=== PATIENT | male | born 1960 | race Caucasian/White ===

== ENCOUNTER → 2017-01-12 | Outpatient (CLI) | payer BC ==
[~2017-01-12] MED LIST: ASP81TEC PO; CHOL400T3 PO; CYAN10006 PO; GLUC100016 PO; GLUC500C2 PO; HYDR-3720 PO; IRBE1TAB33 PO; OLME1TAB25 PO; SULF1TAB38 PO; VITAMIN B 12
[2017-01-12 10:09] LABS: BILIRUBIN,URINE NEGATIVE (NEGATIVE); KETONES,URINE 1+ (NEGATIVE); LEUKOCYTE ESTERASE ,URINE 3+ (NEGATIVE); NITRITE,URINE POSITIVE (NEGATIVE); PH,URINE 5 (5-9); PROTEIN,URINE 2+ (NEGATIVE); UROBILINOGEN,URINE 1 MG/DL (NORMAL)
[2017-01-12 10:24] LABS: SQUAMOUS EPITHELIAL CELL,UR RARE /HPF; WBC,URINE >100 /HPF
== END ==
LOC: LAB 09:50
PROVIDERS: ATTEND Internal Medicine
DX: R50.9 Fever, unspecified (principal); Z87.440 Personal history of urinary (tract) infections; Z87.438 Personal history of other diseases of male genital organs
CPT/HCPCS: 81000; 87077; 87088; 87186

== ENCOUNTER → 2017-02-06 | Outpatient (CLI) | payer BC ==
[2017-02-06 13:43] LABS: BILIRUBIN,URINE NEGATIVE (NEGATIVE); KETONES,URINE NEGATIVE (NEGATIVE); LEUKOCYTE ESTERASE ,URINE 3+ (NEGATIVE); NITRITE,URINE NEGATIVE (NEGATIVE); PH,URINE 6 (5-9); PROTEIN,URINE NEGATIVE (NEGATIVE); UROBILINOGEN,URINE NORMAL (NORMAL)
[2017-02-06 14:25] LABS: GRANULAR CASTS,URINE RARE /LPF; HYALINE CASTS, URINE RARE /LPF; SQUAMOUS EPITHELIAL CELL,UR 0-2 /HPF
--- NOTE | 2017-02-06 14:34 | Diagnostic Imaging Report ---
PROCEDURE: CT urinary tract, rule out kidney stone. TECHNIQUE: Multiple contiguous axial images were obtained through the abdomen and pelvis without the use of intravenous contrast. INDICATION: Right flank pain. Rectal bleeding. Comparison: None Findings: Included portions of the lung bases are clear. CT abdomen: The kidneys, liver, spleen, adrenal glands, and pancreas have an unremarkable noncontrast CT appearance. Small bowel loops are nondistended. Normal appendix is identified. There is colonic diverticulosis, but no CT evidence of acute diverticulitis. There is no loculated fluid collection, free fluid, nor free air within the abdomen. No abnormal mesenteric or retroperitoneal adenopathy is seen. Bony structures show no acute abnormalities. There is mild to moderate calcified aortic atherosclerosis. CT pelvis: Small droplet of air is noted within the non-gravity dependent portion of the urinary bladder. There is also suggestion of thickening of the superior surface of the urinary bladder wall. No calculi are identified within the urinary bladder. Fat-containing left inguinal hernia is noted. There is no loculated fluid collection, free fluid, nor free air within the pelvis. No abnormal lymph nodes are seen. Bony structures show no acute abnormalities. IMPRESSION: 1. Small amount of gas is seen within the lumen of the urinary bladder. Correlation with recent instrumentation is recommended. Alternatively, findings can be seen with gas-forming cystitis. 2. Thickened appearance to the superior wall of the urinary bladder. This may be artifactual and relating to incomplete distention, but also raises concern for possible neoplastic thickening. Further evaluation recommended. 3. Colonic diverticulosis, but no CT evidence of acute diverticulitis. Report was called/faxed to Dr. Fuchs by iam at 2:33 p.m. Dictated by: Dictated on workstation # [id number]
== END ==
LOC: RAD 13:13
PROVIDERS: ATTEND Internal Medicine
DX: N32.9 Bladder disorder, unspecified (principal); K57.30 Diverticulosis of large intestine without perforation or abscess without bleeding; K62.5 Hemorrhage of anus and rectum; Z87.440 Personal history of urinary (tract) infections
CPT/HCPCS: 74176; 81000; 87077; 87088; 87186

== ENCOUNTER → 2017-02-12 | Outpatient (CLI) | payer BC ==
[~2017-02-12] MED LIST changes: +BARIUM SUSPENSION 2.1% (VANILLA SILQ) 450 ML PO ONE; +CATHETER FLUSH 10 ML SYR IV PRN; +IOHEXOL 350 MG/ML 100 ML (OMNIPAQUE 350) VIAL IV ONE; +NS 100 ML (IVPB) BAG IV ONE
--- NOTE | 2017-02-12 15:25 | Diagnostic Imaging Report ---
PROCEDURE: CT abdomen and pelvis with contrast. TECHNIQUE: Multiple contiguous axial images were obtained through the abdomen and pelvis after administration of intravenous contrast. INDICATION: Hematuria and rectal bleeding. COMPARISON: CT abdomen and pelvis from 02/06/2017. FINDINGS: Lower chest: The lung bases are clear. No pericardial or pleural effusion. Peritoneum: No free intraperitoneal air or fluid. Liver and biliary system: Diffuse hypoattenuation of the liver is indicative of hepatic steatosis. The gallbladder is normal. No biliary duct dilation. Spleen and Pancreas: Spleen is normal. The pancreas enhances normally without mass lesion or peripancreatic inflammatory changes. Adrenals: Normal. tract: The kidneys enhance normally without suspicious mass or obstruction. Scattered subcentimeter cortical base cysts in both kidneys. There remains intraluminal gas within the urinary bladder. Wall thickening along the superior aspect of the bladder is also present, which immediately abuts the sigmoid colon which has inflammatory changes. GI tract: Stomach is decompressed. No bowel obstruction. Abnormal thickening of the sigmoid colon with mild surrounding inflammatory changes along with diverticulosis. Findings are suggestive of subacute diverticulitis. The wall thickening of the colon and inflammatory changes about the urinary bladder with potential fistulous formation between the urinary bladder and colon. Vasculature and Lymph nodes: Normal caliber aorta. No abdominal or pelvic lymphadenopathy. Musculoskeletal: No concerning osseous lesion. Stable changes of midline herniorrhaphy. IMPRESSION: 1. Acute to subacute diverticulitis of the sigmoid colon. This immediately abuts the dome of the urinary bladder and there is associated wall thickening of the urinary bladder which is likely reactive. Given the persistent foci of gas within the lumen of the urinary bladder, this raises the possibility of colovesicular fistula. 2. No urinary tract calculi. 3. Diffuse hepatic steatosis. Dictated by: Dictated on workstation # [id number]
== END ==
LOC: RAD 13:40
PROVIDERS: ATTEND Urology
DX: K57.92 Diverticulitis of intestine, part unspecified, without perforation or abscess without bleeding (principal); K76.0 Fatty (change of) liver, not elsewhere classified; N32.9 Bladder disorder, unspecified
CPT/HCPCS: 74177

== ENCOUNTER 2017-02-27 12:20 | Outpatient (CLI) | payer BC ==
[~2017-02-27] VITALS: Ht 175.3 cm; Wt 112.9 kg
[~2017-02-27 12:20] MED LIST changes: -BARIUM SUSPENSION 2.1% (VANILLA SILQ) 450 ML PO ONE; -CATHETER FLUSH 10 ML SYR IV PRN; -IOHEXOL 350 MG/ML 100 ML (OMNIPAQUE 350) VIAL IV ONE; -NS 100 ML (IVPB) BAG IV ONE
[2017-02-27 12:31] VITALS: BP 108/68
[2017-02-27] MEDS ORDERED: IRBE1TAB43 PO (12:55)
[2017-02-27] MEDS ORDERED: OMG1KC PO (12:55)
[2017-02-27] MEDS ORDERED: VITA-244 PO (12:55)
[2017-02-27] MEDS ORDERED: CYAN100088 PO (12:55)
[2017-02-27] MEDS ORDERED: MULT1TAB69 PO (12:55)
[2017-02-27] MEDS ORDERED: CHOL200059 PO (12:55)
[2017-02-27] MEDS ORDERED: CINN500C2 PO (12:55)
[2017-02-27] MEDS ORDERED: GLUC100016 PO (12:55)
[2017-03-04] MEDS ORDERED: HYDR-3820 PO (14:40)
[2017-03-09] MEDS ORDERED: AUGMENTIN PO (19:03)
== END 2017-02-27 12:50 | disposition home or self-care (01) ==
LOC: PREOP 12:20
PROVIDERS: ATTEND Surgery
DX: Z01.818 Encounter for other preprocedural examination (principal); N32.1 Vesicointestinal fistula
CPT/HCPCS: 87081

== ENCOUNTER 2017-03-02 07:43 | Inpatient (IN) | payer BC ==
[~2017-03-02] VITALS: Ht 175.3 cm; Wt 116.6 kg
[2017-03-02] VITALS (12 sets, daily range): BP systolic 89–149; BP diastolic 55–99
[~2017-03-02 07:43] MED LIST changes: +CHOL200059 PO; +CINN500C2 PO; +CYAN100088 PO; +IRBE1TAB43 PO; +MULT1TAB69 PO; +OMG1KC PO; +VITA-244 PO
[2017-03-02] MEDS ORDERED: ONDANSETRON 4 MG/2 ML (SDV) Z0FRAN ONE (07:59)
[2017-03-02] MEDS ORDERED: LIDOCAINE PF 2% 5 ML (XYLOCAINE) VIAL ONE (07:59)
[2017-03-02] MEDS ORDERED: SEVOFLURANE (ULTANE) 15 ML INHAL SOLN ONE ×20 (07:59→15:14)
[2017-03-02] MEDS ORDERED: proPOfol 200 MG/20 ML (DIPRIVAN) VIAL IV ONE (07:59)
[2017-03-02] MEDS ORDERED: DEXAMETHASONE 10 MG/ML (DECADRON) 1 ML VIAL ONE (07:59)
[2017-03-02] MEDS ORDERED: ROCURONIUM 50 MG/5 ML (ZEMURON) VIAL IV ONE ×3 (07:59→12:31)
[2017-03-02] MEDS ORDERED: LACTATED RINGERS 1,000 ML IV ONE ×4 (07:59→13:36)
[2017-03-02] MEDS ORDERED: fentaNYL INJECTION 250 MCG/5 ML AMP ONE (08:00)
[2017-03-02] MEDS ORDERED: MIDAZOLAM 2 MG/2 ML (VERSED) VIAL ONE (08:00)
[2017-03-02] MEDS ORDERED: metroNIDAZOLE 500 MG/100 ML IVPB (PRE-MIX) IV ONE (08:15)
[2017-03-02] MEDS ORDERED: ceFAZolin 2 GM/NS 50 ML IV ONE (08:15)
[2017-03-02] MEDS: LACTATED RINGERS 1,000 ML IV PRN ×4 (08:30→13:55)
[2017-03-02] MEDS ORDERED: BUP/EPI 0.5% 1:200,000 (MARCAINE) 10ML VIAL IJ ONE (08:43)
[2017-03-02] MEDS ORDERED: HEParin (CENTRAL IV FLUSH) 500 UNIT/5 ML SYR ONE (08:58)
--- NOTE | 2017-03-02 09:04 | Progress Note-Pre Operative ---
Pre-Operative Progress Note H&P Reviewed The H&P was reviewed, patient examined and no changes noted. Date Seen by Provider: Feb 23, 2017 Time Seen by Provider: 12:10 Date H&P Reviewed: Mar 02, 2017 Time H&P Reviewed: 09:03 Pre-Operative Diagnosis: colovesical fistula JOSEFINA DEVI MD Mar 02, 2017 9:04 am
[2017-03-02] MEDS ORDERED: ceFAZolin 1,000 MG (ANCEF) VIAL ONE (13:26)
[2017-03-02] MEDS ORDERED: ceFAZolin 1,000 MG (ANCEF) VIAL IV ONE (14:00)
[2017-03-02] MEDS ORDERED: morphine INJ 10 MG/ML 1ML (SYR OR VIAL) ONE (14:17)
[2017-03-02] MEDS ORDERED: NEOSTIGMINE (BLOXIVERZ ) 1 MG/1ML 10 ML VIAL ONE (14:32)
[2017-03-02] MEDS ORDERED: GLYCOPYRROLATE 0.2 MG/ML (ROBINUL) 2 ML VIAL ONE (14:32)
[2017-03-02] MEDS ORDERED: LACTATED RINGERS 1,000 ML IV PRN (14:49)
--- NOTE | 2017-03-02 14:49 | Operative Report ---
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 He was offered minimally invasive resection with robotic assistance and possible primary anastomosis. The potential for creating a temporary loop ileostomy was discussed. Informed consent was obtained after reviewing the operative details and complications of wound infection, intra-abdominal abscess, anastomotic leak leading to fecal diversion and cardio-respiratory dysfunction Description of the procedure: He underwent mechanical bowel preparation including oral antibiotics the day before surgery. He was placed supine on the operating table and general anesthesia induced using an endotracheal tube. 2 g of Ancef and 500 mg of Flagyl were administered intravenously as prophylaxis against wound infection. Second dose of Ancef was administered to the end of the operation. Initially, I attempted to place subclavian central venous catheter but the guidewire could not be advanced therefore further attempts were abandoned. Abdomen was prepared and draped in the usual sterile manner. Pneumoperitoneum was established using a Veress needle introduced superior lateral to the umbilicus on the right side. Intra-abdominal pressure was maintained at 15 mmHg , using carbon dioxide insufflation. A 12 mm trocar was placed and anatomy visualized using the high definition, 3-dimensional laparoscope associated with da Jenny system. Omentum was adherent to the superior aspect of the midline possibly from previous ventral hernia repair. Under direct view, I placed another 12 mm trocar over the right lower quadrant to facilitate placing the robotic stapler followed by an 8 mm trocar over the sub-xiphoid region to the left. Another 8 mm trocar was placed over the left side abdomen, to allow placing the robotic third of the patient was turned into Trendelenburg position , with the left side tilted up to allow triangulation of the sigmoid colon. The robotic system was then docked in place. Omentum was wrapped around the sigmoid colon contained multiple diverticula. In addition, a fistulous communication was found between the distal sigmoid colon and the dome of the urinary bladder. Sigmoid colon was then held up using the robotic third arm and the mesocolon incised using the cautery. The distal end of the inferior mesenteric artery was controlled using the vessel sealing device. Mobilization was continued distally on both sides of the mesorectum using the vessel sealing device as well. Proximal rectum was then skeletonized and transected using a 3.5 mm robotic stapler. We then turned our attention to the proximal sigmoid colon and the descending colon. Both were mobilized, maintaining the marginal arterial arcade. Left ureter was identified and kept out of harms way. Dissection was continued along the lateral aspect of the descending colon using hook cautery and all the way around the splenic flexure to complete the mobilization. At this point, I placed a 5 mm transverse incision over the right lower quadrant , replacing the 12 mm trocar that had been used for the stapler port. A gelpoint wound protection device was placed and the specimen exteriorized. Distal descending colon was transected and confirmed to have very good perfusion. The anvil of a 29 mm EEA stapler was secured into the descending colon using a 2-0 Prolene suture and the bowel was returned back into the peritoneal cavity. Pneumoperitoneum was reestablished in preparation for anastomosis. The shaft of the EEA stapler was brought up against the staple line on the rectum and the spike brought into the peritoneal cavity. The anvil was then docked in place, the stapler closed and activated. We obtained 2 intact and healthy donuts. Integrity of the anastomosis was confirmed further by filling up the pelvis and the anastomosis with saline and insufflating air seeing a rigid proctoscope. It was intact. Repair of the urinary bladder: The fistula with the dome of the urinary bladder was prepared using 2 layers of 20V LOC suture with robotic assistance, the second layer being Lembert type. Omentum was then placed over the anastomosis preparation for closure. Incision over the right lower quadrant was closed using 0 PDS for the peritoneum and #2 Prolene for the fascia. Subcutaneous tissue was approximated using 3-0 Vicryl and skin using 4-0 Vicryl, in a subcuticular fashion The fascia over the 10 mm incisions was closed using #1 Vicryl. All the other skin incisions were closed using 4-0 Vicryl, and a significant left breast. 0.5 percent Marcaine with epinephrine was infiltrated along the incisions, both preemptively and at the conclusion of the operation He tolerated the procedure well, was extubated in the operating room and taken to the recovery room in stable condition. Findings of the Procedure See operative report Allergies and Home Medications Allergies Coded Allergies: No Known Drug Allergies (Unverified , 08/12/10) Home Medications Cholecalciferol (Vitamin D3) 2,000 Unit Tablet, 2,000 UNIT PO DAILY, (Reported) Cinnamon Bark Unknown Strength Capsule, 3,000 MG PO DAILY, (Reported) take 3 (1,000mg) tabs Cyanocobalamin (Vitamin B-12) 1,000 Mcg Tablet, 1,000 MCG PO DAILY, (Reported) Glucosamine Sulfate 2Kcl Unknown Strength Tablet, 2,000 MG PO DAILY, (Reported) Irbesartan/Hydrochlorothiazide 1 Each Tablet, 1 EACH PO DAILY, (Reported) Multivitamin 1 Each Tablet, 1 EACH PO DAILY, (Reported) [place] 3 Polyunsat Fatty Acids 1,000 Mg Cap, 1,000 MG PO DAILY, (Reported) Vitamin E (Dl,Tocopheryl Acet) 1,000 Unit Capsule, 1,000 UNIT PO DAILY, ( Reported) JOSEFINA DEVI MD Mar 02, 2017 2:49 pm
[2017-03-02] MEDS ORDERED: ONDANSETRON 4 MG/2 ML (SDV) Z0FRAN IVP PRN ×2 (15:00→15:15)
[2017-03-02] MEDS ORDERED: meTOprolol 5 MG/5 ML (LOPRESSOR) VIAL IV PRN (15:00)
[2017-03-02] MEDS ORDERED: MEPERIDINE (DEMEROL) INJ 50 MG/ML IVP PRN (15:15)
[2017-03-02] MEDS: morphine INJ 10 MG/ML 1ML (SYR OR VIAL) IVP PRN ×2 (15:32→16:20)
--- NOTE | 2017-03-02 16:08 | Diagnostic Imaging Report ---
INDICATION: Failed central line placement. EXAM: Portable chest at 3:57 PM FINDINGS: Heart size and pulmonary vascularity are normal. The lungs are clear. There are no effusions or pneumothoraces. IMPRESSION: Negative chest. Dictated by: Dictated on workstation # [id number]
[2017-03-02] MEDS: metroNIDAZOLE 500MG/100ML IVPB 100 ML IV SCH (18:01)
[2017-03-02] MEDS: LACTATED RINGERS 1,000 ML IV SCH ×2 (18:01→23:07)
[2017-03-02] MEDS: ceFAZolin 2 GM/50 ML NS 50 ML IV SCH (20:30)
[2017-03-03] VITALS (11 sets, daily range): BP systolic 96–129; BP diastolic 58–74
[2017-03-03] MEDS: metroNIDAZOLE 500MG/100ML IVPB 100 ML IV SCH (00:59)
[2017-03-03] MEDS: fentaNYL INJECTION 100 MCG/2 ML AMP IV PRN ×4 (03:27→13:09)
[2017-03-03 04:50] LABS: BASOPHILS % (AUTO) 0 % (0-10); EOSINOPHILS % (AUTO) 0 % (0-10); LYMPHOCYTES # (AUTO) 0.8 X 10^3 (1.0-4.0); LYMPHOCYTES % (AUTO) 11 % (12-44); MEAN CORPUSCULAR HEMOGLOBIN 32 PG (25-34); MEAN CORPUSCULAR HGB CONC 35 G/DL (32-36); MEAN CORPUSCULAR VOLUME 93 FL (80-99); MEAN PLATELET VOLUME 11.1 FL (7.4-10.4); MONOCYTES # (AUTO) 0.6 X 10^3 (0.0-1.0); MONOCYTES % (AUTO) 8 % (0-12); NEUTROPHILS # (AUTO) 5.8 X 10^3 (1.8-7.8); NEUTROPHILS % (AUTO) 81 % (42-75); PLATELET COUNT 154 10^3/uL (130-400); RED BLOOD COUNT 3.57 10^6/uL (4.35-5.85); RED CELL DISTRIBUTION WIDTH 11.8 % (10.0-14.5); WHITE BLOOD COUNT 7.1 10^3/uL (4.3-11.0)
[2017-03-03] MEDS: ceFAZolin 2 GM/50 ML NS 50 ML IV SCH (04:53)
[2017-03-03 05:04] LABS: ANION GAP 10 MMOL/L (5-14); BLOOD UREA NITROGEN 7 MG/DL (7-18); BUN/CREATININE RATIO 10; CALCIUM 8.1 MG/DL (8.5-10.1); CARBON DIOXIDE 24 MMOL/L (21-32); CHLORIDE 106 MMOL/L (98-107); CREATININE SERUM 0.73 MG/DL (0.60-1.30); GFR ESTIMATED > 60; GLUCOSE 119 MG/DL (70-105); POTASSIUM 3.5 MMOL/L (3.6-5.0); SODIUM 140 MMOL/L (135-145)
--- NOTE | 2017-03-03 06:18 | Progress Note-Standard ---
Standard Progress Note Progress Notes/Assess & Plan Date Seen by Provider: Mar 03, 2017 Time Seen by Provider: 06:17 Progress/Assessment & Plan Doing well. Adequate pain control. Urine output satisfactory. To floor Final Diagnosis [place]-vesical fistula JOSEFINA DEVI MD Mar 03, 2017 6:18 am
[2017-03-03] MEDS: POTASSIUM CL 10MEQ/50ML IVPB 50 ML IV SCH ×3 (06:45→08:49)
[2017-03-03] MEDS: LACTATED RINGERS 1,000 ML IV SCH ×3 (08:50→17:02)
[2017-03-03] MEDS ORDERED: KETOROLAC 30 MG/ML VIAL ONE (09:37)
[2017-03-03] MEDS ORDERED: PANTOPRAZOLE 40 MG/10 ML (PROTONIX) VIAL ONE (09:37)
[2017-03-03] MEDS ORDERED: KETOROLAC 30 MG/ML VIAL IVP PRN (09:45)
[2017-03-03] MEDS ORDERED: PANTOPRAZOLE 40 MG/10 ML (PROTONIX) VIAL IV NR (09:45)
[2017-03-03] MEDS: KETOROLAC 30 MG/ML VIAL IVP SCH ×2 (09:49→17:06)
--- NOTE | 2017-03-03 10:51 | Consultation-Hospitalist ---
HPI History of Present Illness: HPI/Chief Complaint Mr. Vega is a 56-year-old white male postop day 1 status post robotic-assisted colovesicular fistula repair. He reports yesterday he felt well but this morning reports burning lower abdominal discomfort with movement. He is relatively comfortable at rest. He voices no other major complaints. He is concerned about movement because it intensifies his pain. Fentanyl takes the edge off but he notes it does not last very long. He has no past history of abdominal surgery. He is a patient of [facility] who does have long-standing hypertension that is well controlled on current therapy of Avapro HCT. He denies chest pain or shortness of breath. I been consult at for hypertension management. Date Seen 03/03/17 Attending Physician Rian Wells MD PCP Porfirio Winslow MD Referring Physician Date of Admission Home Medications & Allergies Home Medications Reviewed patient Home Medication Reconciliation Form Allergies Allergies Coded Allergies No Known Drug Allergies (Unverified08/12/10) Past Jvugswm-Qiowaz-Kjzdva Hx Patient Social History Alcohol Use: Occasionally Uses Recreational Drug Use: No Smoking Status: Former Smoker Former Smoker, Quit: Feb 27, 1999 Type Used: Cigarettes Physical Abuse Screen: No Sexual Abuse: No Recent Foreign Travel: No Contact w/other who traveled: No Recent Hopitalizations: No Recent Infectious Disease Expo: No Immunizations Up To Date Tetanus Booster (TDap): Unknown Seasonal Allergies Seasonal Allergies: No Surgeries Yes (Umb Hernia Repair, Spot on Back Removed, Left Rotator Cuff) Respiratory No Cardiovascular Yes Neurological No Reproductive System Hx Reproductive Disorders: No Sexually Transmitted Disease: No HIV/AIDS: No Genitourinary Yes (Colovesical Fistula) Gastrointestinal Yes (Colovesical Fistula) Musculoskeletal No Endocrine History of Endocrine Disorders: No HEENT History of HEENT Disorders: No (DENTURES) Loss of Vision: Denies Hearing Impairment: Denies Cancer No Psychosocial History of Psychiatric Problem: No Integumentary History of Skin or Integumenta: No Blood Transfusions History of Blood Disorders: No Adverse Reaction to a Blood Tr: No Family Medical History Family Hx: Cardiovascular disease 19 MOTHER (CHF) No Family History of: AIDS Abdominal aortic aneurysm Alejandro's disease Alcoholism Alzheimer's disease Aphasia Arthritis Asthma Cancer of mouth Cataracts Colon cancer Completed stroke Congenital disease Congenital heart disease Coronary thrombosis Cystic fibrosis Deafness or hearing loss Dementia Diabetes mellitus Drug abuse Dysphasia Fibrocystic disease of breast Gastroenteritis Glaucoma Headache disorder Hypercholesterolemia Hypertension Infertility Kidney disease Myocardial infarction Neoplasm Osteoporosis Parkinson's disease Prostate cancer Psychosocial problem Respiratory disorder Seizure disorder Severe allergy Thyroid disease Tuberculosis Visual disorder Review of Systems Constitutional: no symptoms reported, see HPI Respiratory: no symptoms reported, see HPI, No cough, No hemoptysis, No short of breath Gastrointestinal: see HPI, other (no reported nausea or vomiting.) Physical Exam Physical Exam Vital Signs Vital Sign - Last 12Hours 03/02/17 08:30 Temp 98.4 Pulse 88 Resp 16 B/P (MAP) 149/99 Pulse Ox 95 O2 Delivery Room Air Capillary Refill : General Appearance: WD/WN, Anxious, Obese Respiratory: Chest Non Tender, Lungs Clear, Normal Breath Sounds, No Accessory Muscle Use, No Respiratory Distress Cardiovascular: Regular Rate, Rhythm, No Edema, No Gallop, No JVD, No Murmur, Normal Peripheral Pulses Gastrointestinal: Normal Bowel Sounds, No Organomegaly, No Pulsatile Mass, Other (expected tenderness over trocar sites only with mild abdominal distention.) Extremity: Normal Capillary Refill, Normal Inspection, Normal Range of Motion, Non Tender, No Calf Tenderness, No Pedal Edema Neurologic/Psychiatric: Alert, Oriented x3 Skin: Normal Color, Warm/Dry Results Results/Procedures Lab Laboratory Tests 03/03/17 04:31 Assessment/Plan Admission Diagnosis see assessment and plan. Assessment and Plan 1. Postop day 1 status post robotic-assisted laparoscopic colovesicular fistula repair due to underlying diverticular disease. Patient was reassured about his usual postoperative abdominal discomfort. We'll try short course of ketorolac 30 mg every 8 hours 6 doses for postoperative pain management in addition to when necessary fentanyl. We discussed the importance of ambulation and using his incentive spirometer even if it did result in discomfort. The rationale for moving and deep breathing to reduce infection and blood clot risk were discussed patient voices understanding. 2. History of hypertension we'll hold antihypertensive medication for now and tell he has sustained blood pressure elevation to avoid orthostatic hypotension in the perioperative period. We'll continue to follow with you. Clinical Quality Measures DVT/VTE Risk/Contraindication: Risk Factor Score Per Nursin RFS Level Per Nursing on Admit: 4+=Very High PORFIRIO WINSLOW MD Mar 03, 2017 10:51
[2017-03-03] MEDS: HYDROcodone/APAP 5 MG/325 MG (LORTAB) TAB PO PRN ×3 (13:08→22:28)
--- NOTE | 2017-03-03 13:29 | Anesthesia-General Post-Op ---
General Patient Condition Mental Status/LOC: Same as Preop Cardiovascular: Satisfactory Nausea/Vomiting: Absent Respiratory: Satisfactory Pain: Controlled Complications: Absent Post Op Complications Complications None Follow Up Care/Instructions Patient Instructions None needed. Anesthesia/Patient Condition Patient Condition Patient is doing well, no complaints, stable vital signs, no apparent adverse anesthesia problems. Transferred to the floor earlier today and ambulating well. PATEL LINDA DO Mar 03, 2017 13:29
[2017-03-03] MEDS: ENOXAPARIN 40 MG/0.4 ML (LOVENOX) SYR SC SCH (15:28)
[2017-03-04] VITALS: BP 115/60
[2017-03-04] MEDS: HYDROcodone/APAP 5 MG/325 MG (LORTAB) TAB PO PRN ×4 (02:59→15:49)
[2017-03-04] MEDS: KETOROLAC 30 MG/ML VIAL IVP SCH ×2 (02:59→09:54)
[2017-03-04 04:00] VITALS: BP 118/65
[2017-03-04] MEDS ORDERED: PANTOPRAZOLE 40 MG (PROTONIX) TAB PO SCH (07:00)
[2017-03-04] MEDS ORDERED: IBUP-15 PO (08:18)
--- NOTE | 2017-03-04 08:49 | Progress Note-Hospitalist ---
Standard Progress Note HPI/CC on Admission Mr. Vega is a 56-year-old white male postop day 1 status post robotic-assisted colovesicular fistula repair. He reports yesterday he felt well but this morning reports burning lower abdominal discomfort with movement. He is relatively comfortable at rest. He voices no other major complaints. He is concerned about movement because it intensifies his pain. Fentanyl takes the edge off but he notes it does not last very long. He has no past history of abdominal surgery. He is a patient of mine who does have long-standing hypertension that is well controlled on current therapy of Avapro HCT. He denies chest pain or shortness of breath. I been consult at for hypertension management. Progress Notes/Assess & Plan Date Seen 03/04/17 Assess & Plan/Chief Complaint 1. Postop day 1 status post robotic-assisted laparoscopic colovesicular fistula repair due to underlying diverticular disease. Patient was reassured about his usual postoperative abdominal discomfort. We'll try short course of ketorolac 30 mg every 8 hours 6 doses for postoperative pain management in addition to when necessary fentanyl. We discussed the importance of ambulation and using his incentive spirometer even if it did result in discomfort. The rationale for moving and deep breathing to reduce infection and blood clot risk were discussed patient voices understanding. 2. History of hypertension we'll hold antihypertensive medication for now and tell he has sustained blood pressure elevation to avoid orthostatic hypotension in the perioperative period. We'll continue to follow with you. Labs Laboratory Tests 03/03/17 04:31 PORFIRIO WINSLOW MD Mar 04, 2017 08:49
[2017-03-04 08:50] VITALS: BP 132/82
[2017-03-04 12:00] VITALS: BP 138/79
[2017-03-04] MEDS: ENOXAPARIN 40 MG/0.4 ML (LOVENOX) SYR SC SCH (14:15)
--- NOTE | 2017-03-04 14:30 | Progress Note-Standard ---
Standard Progress Note Progress Notes/Assess & Plan Date Seen by Provider: Mar 04, 2017 Time Seen by Provider: 14:28 Progress/Assessment & Plan Doing well. Adequate pain control. Urine output satisfactory. To floor. Has had several BMs and passed flatus. Echymosis around the right flank, reassured. Could be discharged home Final Diagnosis colo-vesical fistula JOSEFINA DEVI MD Mar 04, 2017 2:30 pm
--- NOTE | 2017-03-04 14:36 | Discharge Summary ---
Diagnosis/Chief Complaint Date of Admission 03/02/17 Date of Discharge 03/04/17 Discharge Date: Mar 04, 2017 Discharge Time: 14:31 Admission Diagnosis Admission Diagnosis [place]-vesical fistula Discharge Diagnosis Same Reason Hospital Visit To undergo an elective robotic assisted sigmoid resection to manage colo- vesical fistula/ Discharge Summary Procedures Has recovered satisfactorily Discharge Physical Examination Allergies: Coded Allergies: No Known Drug Allergies (Unverified , 08/12/10) Vitals & I&Os Vital Signs Date Time Temp Pulse Resp B/P (MAP) Pulse Ox O2 Delivery O2 Flow Rate FiO2 03/04/17 12:00 99.1 97 18 138/79 96 Room Air 03/04/17 09:00 3.00 Hospital Course Labs (last 24 hrs) Laboratory Tests 03/03/17 04:31: White Blood Count 7.1, Red Blood Count 3.57L, Hemoglobin 11.5L, Hematocrit 33L, Mean Corpuscular Volume 93, Mean Corpuscular Hemoglobin 32, Mean Corpuscular Hemoglobin Concent 35, Red Cell Distribution Width 11.8, Platelet Count 154, Mean Platelet Volume 11.1H, Neutrophils (%) (Auto) 81H, Lymphocytes (%) (Auto) 11L, Monocytes (%) (Auto) 8, Eosinophils (%) (Auto) 0, Basophils (%) (Auto) 0, Neutrophils # (Auto) 5.8, Lymphocytes # (Auto) 0.8L, Monocytes # (Auto) 0.6, Eosinophils # (Auto) 0.0, Basophils # (Auto) 0.0, Sodium Level 140, Potassium Level 3.5L, Chloride Level 106, Carbon Dioxide Level 24, Anion Gap 10, Blood Urea Nitrogen 7, Creatinine 0.73, Estimat Glomerular Filtration Rate > 60, BUN/ Creatinine Ratio 10, Glucose Level 119H, Calcium Level 8.1L Pending Labs Laboratory Tests 03/03/17 04:31: White Blood Count 7.1, Red Blood Count 3.57, Hemoglobin 11.5, Hematocrit 33, Mean Corpuscular Volume 93, Mean Corpuscular Hemoglobin 32, Mean Corpuscular Hemoglobin Concent 35, Red Cell Distribution Width 11.8, Platelet Count 154, Mean Platelet Volume 11.1, Neutrophils (%) (Auto) 81, Lymphocytes (%) (Auto) 11 , Monocytes (%) (Auto) 8, Eosinophils (%) (Auto) 0, Basophils (%) (Auto) 0, Neutrophils # (Auto) 5.8, Lymphocytes # (Auto) 0.8, Monocytes # (Auto) 0.6, Eosinophils # (Auto) 0.0, Basophils # (Auto) 0.0, Sodium Level 140, Potassium Level 3.5, Chloride Level 106, Carbon Dioxide Level 24, Anion Gap 10, Blood Urea Nitrogen 7, Creatinine 0.73, Estimat Glomerular Filtration Rate > 60, BUN/ Creatinine Ratio 10, Glucose Level 119, Calcium Level 8.1 Discharge Home Medications: Active Scripts Active Motrin Ib (Ibuprofen) 200 Mg Tablet 600 Mg PO TID 7 Days Reported Cinnamon (Cinnamon Bark) Unknown Strength Capsule 3,000 Mg PO DAILY take 3 (1,000mg) tabs Multivitamins (Multivitamin) 1 Each Tablet 1 Each PO DAILY Fish Oil 1,000 mg Capsule ([place] 3 Polyunsat Fatty Acids) 1,000 Mg Cap 1,000 Mg PO DAILY Vitamin E (Vitamin E (Dl,Tocopheryl Acet)) 1,000 Unit Capsule 1,000 Unit PO DAILY Irbesartan-Hctz 300-12.5 mg Tb (Irbesartan/Hydrochlorothiazide) 1 Each Tablet 1 Each PO DAILY Glucosamine (Glucosamine Sulfate 2Kcl) Unknown Strength Tablet 2,000 Mg PO DAILY B-12 (Cyanocobalamin (Vitamin B-12)) 1,000 Mcg Tablet 1,000 Mcg PO DAILY Vitamin D-3 (Cholecalciferol (Vitamin D3)) 2,000 Unit Tablet 2,000 Unit PO DAILY Instructions to patient/family Please see electronic discharge instructions given to patient. Clinical Quality Measures DVT/VTE Risk/Contraindication: Risk Factor Score Per Nursin RFS Level Per Nursing on Admit: 4+=Very High JOSEFINA DEVI MD Mar 04, 2017 2:36 pm
--- NOTE | 2017-03-04 14:39 | Discharge Inst-Simple/Standard ---
Discharge Inst-Standard Discharge Medications New, Converted or Re-Newed RX: RX on Chart Patient Instructions/Follow Up Plan of Care/Instructions/FU: October show. F/U next 03/12. Activity as Tolerated: No Goal: No lifting over 10 lbs Discharge Diet: Soft Diet JOSEFINA DEVI MD Mar 04, 2017 2:39 pm
[2017-03-04] MEDS ORDERED: HYDR-3820 PO (14:40)
[2017-03-04 16:00] VITALS: BP 134/88
[2017-03-04 17:15] VITALS: BP 134/88
== END 2017-03-04 17:15 | disposition home or self-care (01) | DRG 655 ==
LOC: SDC 07:43 → ICU 07:43 → EDSTATUS 10:30 → ICU 16:19 → SDC 16:19 → 4TH 03-03 07:10 → ICU 03-03 07:10 → UNDOFXSDCSVC 03-03 07:10 → 4TH 03-04 17:15 → SDC 03-04 17:15
PROVIDERS: ADMIT Surgery; ATTEND Surgery
PROC: 8E0W0CZ Robotic Assisted Procedure of Trunk Region, Open Approach (ICD-10-PCS; 2017-03-02)
PROC: 0DTN0ZZ Resection of Sigmoid Colon, Open Approach (ICD-10-PCS; principal; 2017-03-02 09:15)
PROC: 0TQB0ZZ Repair Bladder, Open Approach (ICD-10-PCS; 2017-03-02 09:15)
DX: N32.1 Vesicointestinal fistula (principal); K57.30 Diverticulosis of large intestine without perforation or abscess without bleeding; I10 Essential (primary) hypertension; Z87.891 Personal history of nicotine dependence
CPT/HCPCS: 36415; 71010; 80048; 85025; 86850; 86900; 86901; 88307; 94664

== ENCOUNTER 2017-03-16 06:51 | Outpatient (RCR) | payer BC ==
[2017-03-09 15:00] VITALS: BP 128/76
[2017-03-09 16:32] LABS: BUN/CREATININE RATIO 13; CALCIUM 8.9 MG/DL (8.5-10.1); CARBON DIOXIDE 28 MMOL/L (21-32); CHLORIDE 103 MMOL/L (98-107); CREATININE SERUM 0.72 MG/DL (0.60-1.30); GFR ESTIMATED > 60; GLUCOSE 110 MG/DL (70-105); POTASSIUM 3.5 MMOL/L (3.6-5.0); SODIUM 141 MMOL/L (135-145)
[2017-03-09] MEDS: metroNIDAZOLE 500MG/100ML IVPB 100 ML IV SCH (18:20)
[2017-03-10 07:00] VITALS: BP 139/85
[2017-03-10] MEDS: VANCOMYCIN 1500 MG/NS 500 ML IVPB IV SCH ×4 (07:13→19:00)
[2017-03-10] MEDS: metroNIDAZOLE 500MG/100ML IVPB 100 ML IV SCH ×2 (09:30→19:00)
[2017-03-10 19:06] VITALS: BP 146/70
[2017-03-10 21:15] VITALS: BP 146/70
[2017-03-11] MEDS: VANCOMYCIN 1500 MG/NS 500 ML IVPB IV SCH ×2 (07:00)
[2017-03-11] MEDS: metroNIDAZOLE 500MG/100ML IVPB 100 ML IV SCH ×2 (07:00→19:25)
[2017-03-11 09:00] VITALS: BP 162/86
[2017-03-11] MEDS: VANCOMYCIN INJECTION 1,750 MG in NS IV 500 ML 500 ML IV SCH (19:25)
[2017-03-11 21:37] VITALS: BP 164/84
[2017-03-12] MEDS: VANCOMYCIN INJECTION 1,750 MG in NS IV 500 ML 500 ML IV SCH ×2 (07:02→18:57)
[2017-03-12] MEDS: metroNIDAZOLE 500MG/100ML IVPB 100 ML IV SCH ×2 (07:03→18:57)
[2017-03-12 08:18] VITALS: BP 149/78
[2017-03-12 18:50] VITALS: BP 165/82
[2017-03-13] MEDS: metroNIDAZOLE 500MG/100ML IVPB 100 ML IV SCH ×2 (07:20→18:20)
[2017-03-13] MEDS: VANCOMYCIN INJECTION 1,750 MG in NS IV 500 ML 500 ML IV SCH ×2 (07:20→18:20)
[2017-03-13 09:45] VITALS: BP 149/87
[2017-03-13 18:11] VITALS: BP 139/81
[2017-03-13 20:30] VITALS: BP 139/81
[2017-03-14] MEDS: VANCOMYCIN INJECTION 1,750 MG in NS IV 500 ML 500 ML IV SCH ×2 (08:10→18:30)
[2017-03-14] MEDS: metroNIDAZOLE 500MG/100ML IVPB 100 ML IV SCH ×2 (08:10→18:25)
[2017-03-14 08:21] VITALS: BP 147/86
[2017-03-14 18:32] VITALS: BP 150/79
[2017-03-14 21:00] VITALS: BP 0/0
[2017-03-15] MEDS: VANCOMYCIN INJECTION 1,750 MG in NS IV 500 ML 500 ML IV SCH ×2 (08:15→18:28)
[2017-03-15] MEDS: metroNIDAZOLE 500MG/100ML IVPB 100 ML IV SCH ×2 (08:15→18:29)
[2017-03-15 08:31] VITALS: BP 147/86
[2017-03-15 18:32] VITALS: BP 157/86
[2017-03-15 21:40] VITALS: BP 157/86
[~2017-03-16] VITALS: Ht 175.3 cm; Wt 116.6 kg
[~2017-03-16 06:51] MED LIST changes: -IBUP-15 PO; +IBUP-16 PO; +TROUGH ORDER-PHARMACY XX NR; +VANCOMYCIN 2000 MG/NS 500 ML IVPB IV NR
[2017-03-16] MEDS: VANCOMYCIN INJECTION 1,750 MG in NS IV 500 ML 500 ML IV SCH (07:05)
[2017-03-16] MEDS: metroNIDAZOLE 500MG/100ML IVPB 100 ML IV SCH (07:05)
[2017-03-16 09:15] VITALS: BP 139/82
== END 2017-06-07 | disposition home or self-care (01) ==
LOC: SDC 06:51
PROVIDERS: ATTEND Surgery
DX: L03.90 Cellulitis, unspecified (principal)
CPT/HCPCS: 36415; 36592; 76937; 80048; 80202; 96365; 96366; 96367; 96368; 99211

== ENCOUNTER → 2017-03-16 | Outpatient (CLI) | payer BC ==
[~2017-03-16] MED LIST changes: +AUGMENTIN PO; +HYDR-3820 PO; +IBUP-15 PO
--- NOTE | 2017-03-16 14:03 | Diagnostic Imaging Report ---
CT cystogram CT scan of the pelvis is performed with and without intravesical contrast administered through a Diana catheter. No intravenous contrast is administered. INDICATION: History of diverticulitis. Evaluate for a colovesical fistula or bladder leak. FINDINGS: Initial scan demonstrates a Diana catheter in the bladder. There is no bladder air on the initial phase of scanning. After introduction of contrast through the Diana catheter, 240 mL into the bladder distending it, some intraluminal air is seen. This is probably introduced with the contrast. The patient also was scanned after emptying the contrast from the urinary bladder. There is no evidence of contrast leakage outside the urinary bladder and no contrast opacification of a fistula tract between the colon and the bladder is seen. There is an area of thickening however noted in the upper left side aspect of the urinary bladder which is adjacent to the sigmoid colon and the suture line but is by a thin plane of fatty tissue. The suture line along the anastomosis around the level of the sigmoid colon appears to be patent. There is diverticulosis seen in the proximal segment of the colon (proximal to the anastomosis). No active diverticulitis findings seen. There is partially visualized ventral hernia repair with mesh noted. There is a small amount of free peritoneal air which is likely remnants from the recent surgery. Some of the air density is seen within the inguinal canal on both sides. The inguinal canal on the left side is distended compatible with fat-containing indirect inguinal hernia. No significant free fluid or fluid collection in the pelvis is seen. The osseous structures demonstrate degenerative changes in the lower lumbar spine and SI joints. IMPRESSION: 1. No evidence of bladder leak or evidence of a colovesical fistula seen. There is however thickening in the urinary bladder wall superiorly and to the left noted. 2. Free peritoneal air and air in the inguinal canals are probably remnants from postsurgical changes. There is a fat-containing left indirect inguinal hernia noted. Dictated by: Dictated on workstation # [id number]
== END ==
LOC: RAD 10:18
PROVIDERS: ATTEND Surgery
DX: K57.30 Diverticulosis of large intestine without perforation or abscess without bleeding (principal); N32.9 Bladder disorder, unspecified; K40.90 Unilateral inguinal hernia, without obstruction or gangrene, not specified as recurrent; Z96.0 Presence of urogenital implants
CPT/HCPCS: 72192

== ENCOUNTER → 2017-12-14 | Outpatient (CLI) | payer BC ==
[~2017-12-14] MED LIST changes: -TROUGH ORDER-PHARMACY XX NR; -VANCOMYCIN 2000 MG/NS 500 ML IVPB IV NR
== END ==
LOC: RAD 07:18
PROVIDERS: ATTEND Internal Medicine
DX: Z53.8 Procedure and treatment not carried out for other reasons (principal); M54.12 Radiculopathy, cervical region

== ENCOUNTER → 2018-01-19 | Outpatient (CLI) | payer BC | LOC: CARD 07:00 | PROVIDERS: ATTEND Internal Medicine | DX: I10 Essential (primary) hypertension (principal); E78.00 Pure hypercholesterolemia, unspecified; R94.39 Abnormal result of other cardiovascular function study | CPT/HCPCS: 93017 ==

== ENCOUNTER → 2020-10-18 | Outpatient (CLI) | payer BC ==
[~2020-10-18] VITALS: Ht 175.3 cm; Wt 85.5 kg
[~2020-10-18] MED LIST changes: +ACHYD1T PO; +EMPA25TA PO; -HYDR-3820 PO; +MULT-567 PO; -MULT1TAB69 PO
== END ==
LOC: PREOP 10:34
PROVIDERS: ATTEND Internal Medicine
DX: Z01.818 Encounter for other preprocedural examination (principal)

== ENCOUNTER 2020-10-26 07:10 | Day surgery (SDC) | payer BC ==
--- NOTE | 2020-10-23 09:16 | HISTORY AND PHYSICAL ---
DATE OF SERVICE: COLONOSCOPY HISTORY AND PHYSICAL HISTORY OF PRESENT ILLNESS: The patient is a 60-year-old white male being set up for surveillance colonoscopy with a past history of adenomatous colonic polyps. He last had 2 adenomas removed in 2004, one from the mid transverse colon and one from the proximal ascending colon. He has had several bouts of diverticulitis in the past with known moderate diverticular disease predominantly confined to the sigmoid colon. He is here for followup of type 2 diabetes as well. He has lost another 20 pounds and is down roughly 80 pounds from his high with normalization of blood sugar numbers on a lower glycemic diet and has been feeling well. He has had no abdominal pain and voices no complaints. PHYSICAL EXAMINATION: GENERAL: Reveals a white male, appears to be in no acute distress. VITAL SIGNS: Weight 205 pounds, blood pressure 132/70. CHEST: Clear. CARDIOVASCULAR: Reveals regular rate and rhythm without murmur, S3 or S4. ABDOMEN: Soft, supple without mass, organomegaly or tenderness. EXTREMITIES: Reveal no cyanosis, clubbing or edema. ASSESSMENT AND PLAN: The patient is set up for surveillance colonoscopy on 10/26/2020. Prep instructions and Suprep kit were given and questions were answered. No medication changes. Job ID: [id number] DocumentID: [id number] Dictated Date: 10/23/2020 09:03:35 Aquatics Manager Date: 10/23/2020 09:16:00 Dictated By: PORFIRIO WINSLOW MD
[2020-10-26] VITALS (11 sets, daily range): BP systolic 129–154; BP diastolic 62–81
[~2020-10-26] VITALS: Ht 175.3 cm; Wt 85.5 kg
[2020-10-26] MEDS ORDERED: D5 LR IV SOLUTION 1,000 ML IV ONE (07:14)
[2020-10-26] MEDS ORDERED: D5 LR IV SOLUTION 1,000 ML IV STA (07:23)
[2020-10-26] MEDS ORDERED: MIDAZOLAM 5 MG/5 ML (VERSED) VIAL IV ONE (07:30)
[2020-10-26] MEDS ORDERED: fentaNYL INJ 100 MCG/2 ML AMP IVP ONE (07:30)
[2020-10-26] MEDS ORDERED: LIDOCAINE JELLY 2% 6 ML SYRINGE MM PRN (07:30)
[2020-10-26] MEDS ORDERED: LIDOCAINE JELLY 2% 6 ML SYRINGE ONE (07:37)
[2020-10-26] MEDS ORDERED: fentaNYL INJ 100 MCG/2 ML AMP ONE (07:37)
[2020-10-26] MEDS ORDERED: MIDAZOLAM 5 MG/5 ML (VERSED) VIAL ONE (07:37)
--- NOTE | 2020-10-26 07:59 | Pre-Op Note & Conscious Sedat ---
Pre-Operative Progress Note H&P Reviewed The H&P was reviewed, patient examined and no changes noted. Date H&P Reviewed: October 26, 2020 Time H&P Reviewed: 07:40 Conscious Sedation Pre-Proced ASA Score 2 For ASA 3 and 4: Consider anesthesia and medical clearance. Also, for patients with a history of failed moderate sedation consider anesthesia. Airway Lungs Heart ASA score ASA 1: a normal healthy patient ASA 2: a patient with a mild systemic disease (mid diabetes, controlled hypertension, obesity ASA 3: a patient with a severe systemic disease that limits activity (angina, COPD, prior Myocardial infarction) ASA 4: a patient with an incapacitating disease that is a constant threat to life (CHF, renal failure) ASA 5: a moribund patient not expected to survive 24 hrs. (ruptured aneurysm) ASA 6: a declared brain- patient whose organs are being harvested. For emergent operations, add the letter E after the classification Mallampati Classification Grade 2 Sedation Plan Analgesia, Amnesia, Plan communicated to team members, Discussed options with patient/fam, Discussed risks with patient/fam The patient is an appropriate candidate to undergo the planned procedure, sedation, and anesthesia. The patient immediately re-assessed prior to indication. PORFIRIO WINSLOW MD October 26, 2020 07:59
--- NOTE | 2020-10-26 13:02 | OPERATIVE REPORT ---
DATE OF SERVICE: COLONOSCOPY SUMMARY INDICATION FOR PROCEDURE: Screening. DESCRIPTION OF PROCEDURE: The patient was placed in the left lateral decubitus position. Prior to undergoing colonoscopy, digital rectal evaluation was performed. Anal sphincter tone was normal and the perianal reflexes intact. Prostate is moderately enlarged, anodular and nontender to digital inspection. No other abnormalities were noted on digital inspection of anal canal or distal rectal vault. The colonoscope was then inserted into the rectum and under direct visualization advanced to the cecum. The cecum was identified by the identification of ileocecal valve and cecal strap. Photographic documentation including the appendiceal orifice was obtained. Careful inspection was made as the colonoscope was withdrawn. The quality of prep was good. FINDINGS: There was no evidence for internal or external hemorrhoids and the rectum was unremarkable. Several sigmoid diverticulum persist without evidence for diverticulitis, previous anastomotic margin from the patient's known sigmoid resection for severe diverticular disease is unremarkable. Several small diverticulum were noted in the descending colon, transverse colon and ascending colon, which were otherwise unremarkable. The cecum was normal as well. No evidence for neoplasia was identified. ASSESSMENT: Mild diverticular disease with unremarkable appearing anastomotic margin. The remainder of the sigmoid colon had several scattered small diverticulum and no evidence for diverticulitis throughout the remainder of the colon. No evidence for neoplasia was identified and no other abnormalities were noted. Digital evaluation of the prostate was compatible with mild BPH with no nodularity. We will advocate repeat surveillance colonoscopy in 5 years due to the past history of colon polyps. Job ID: [id number] DocumentID: [id number] Dictated Date: 10/26/2020 08:49:13 Organ Fixer Date: 10/26/2020 13:01:03 Dictated By: PORFIRIO WINSLOW MD [facility]
== END 2020-10-26 09:05 | disposition home or self-care (01) ==
LOC: ENDO 07:10
PROVIDERS: ATTEND Internal Medicine
DX: Z12.11 Encounter for screening for malignant neoplasm of colon (principal); K57.30 Diverticulosis of large intestine without perforation or abscess without bleeding; E11.9 Type 2 diabetes mellitus without complications; Z98.0 Intestinal bypass and anastomosis status; Z86.010 Personal history of colon polyps